=== PATIENT | female | born 1985 ===

== ENCOUNTER 2016-09-14 21:04 | Emergency (ER) | payer OTHER ==
--- NOTE | 2016-09-14 21:58 | ED PSYCHIATRIC COMPLAINT ---
History of Present Illness General Chief Complaint: ETOH/Drug Related Complaint Stated Complaint: BIBA FOR ETOH, NOT COOPERATIVE Source: patient, EMS, police Exam Limitations: poor historian, intoxication Vital Signs & Intake/Output Vital Signs & Intake/Output Vital Signs Date Time Temp Pulse Resp B/P Pulse O2 O2 Flow FiO2 Ox Delivery Rate 09/15 1211 95.8 77 16 130/73 99 Room Air 09/15 0922 97.8 85 18 129/71 99 Room Air 09/15 0545 97.5 108 18 108/52 95 Room Air 09/14 2331 98.5 98 16 113/61 97 Room Air 09/14 2130 98.9 110 20 128/78 97 Room Air ED Intake and Output 09/15 0000 09/14 1200 Intake Total Output Total 300 Balance -300 Output, Urine 300 Allergies Coded Allergies: cefaclor (From CECLOR) (Mild, ITCHING 09/14/16) Triage Note: BIBA ON PEER FOR +ETOH. PER EMS, PT WAS KNOCKING ON OTHER PEOPLE'S DOORS BECAUSE SHE THOUGHT SHE WAS AT HER HOUSE. PT UNCOOPERATIVE, REFUSING TO GO TO HOSPITAL. PT REFUSING ALL CARE EN ROUTE BY EMS. UPON ARRIVAL PT REFUSING VITALS, REFUSING TO SIT ON STRETCHER. 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 yes HPI: Patient presents at the request of the police department for evaluation of acute alcohol intoxication. Patient evidently was found going door to door for an unclear reason. When asked the patient states that the police are too aggressive and they brought her here for no reason. She states she was at home attending to her 3 dogs when the police dragged her out of her house and brought her to the emergency department. (CHIARA BRIAN MD) Past History Travel History Traveled to [place] past 21 day No Medical History Any Pertinent Medical History? see below for history Surgical History Surgical History: non-contributory Family History Hx Contributory? No (CHIARA BRIAN MD) Review of Systems Review of Systems Constitutional: Reports: see HPI. Comments Patient refused to provide review of systems stating that there is no reason for her to be here. (CHIARA BRIAN MD) Physical Exam Physical Exam General Appearance: see below Neurological/Psychiatric: see below Comments: General: Alert, calm, agitated and profane/threatening at times, EtOH-like odor Head: Normocephalic, atraumatic Eyes: Normal inspection, no nystagmus, EOMI Ears: Normal inspection Nose: Normal inspection Throat: Moist mucosa Neck: Supple, no goiter Heart: Regular rate and rhythm, no murmurs rubs or gallops Lungs: Clear to auscultation bilaterally with good air entry Abdomen: Soft nontender nondistended, normal bowel sounds Chest: Nontender Extremities: Normal range of motion grossly, no tremors present, no cyanosis clubbing or edema of the upper extremities Neurologic: cranial nerves II through XII grossly intact, speech slurred, mildly unsteady gait Psychiatric: No apparent delusions or hallucinations, no pressured speech or thought blocking (SNEHAL WALLER,CHIARA Crum) SAD PERSONS Done? patient not suicidal (ROSANGELA WALLER,VANI) Progress Differential Diagnosis: alcohol intoxication Plan of Care: Orders Procedure Date/time Status ED CRISIS PSYCH CONSULT 09/15 712 Active Patient Safety Monitor 09/14 2149 Active URINE DRUGS OF ABUSE 09/14 2148 Complete URINE 09/14 2148 Complete ETHANOL 09/14 2148 Complete COMPREHENSIVE METABOLIC PANEL 09/14 2148 Complete CBC WITHOUT DIFFERENTIAL 09/14 2148 Complete Laboratory Tests 09/14/162158: Anion Gap 18 H, Estimated GFR > 60, BUN/Creatinine Ratio 14.3, Glucose 97, Calcium 9.2, Total Bilirubin 0.3, AST 24, ALT 29, Alkaline Phosphatase 82, Total Protein 7.9, Albumin 4.8, Globulin 3.1, Albumin/Globulin Ratio 1.5, CBC w Diff NO MAN DIFF REQ, RBC 5.37, MCV 80.3 L, MCH 27.5, RDW 12.9, MPV 7.6, Gran % 32.6 L, Lymphocytes % 62.7 H, Monocytes % 4.0, Eosinophils % 0.3, Basophils % 0.4, Absolute Granulocytes 2.4, Absolute Lymphocytes 4.5 H, Absolute Monocytes 0.3, Absolute Eosinophils 0, Absolute Basophils 0, PUBS MCHC 34.2, Serum Alcohol 299.0 09/14/162150: Urine Opiates Screen < 100.00, Methadone Screen < 40, Barbiturate Screen < 60, Ur Phencyclidine Scrn < 6.00, Amphetamines Screen < 100, U Benzodiazepines Scrn < 85, Urine Cocaine Screen < 50, Urine Cannabis Screen < 5.00, Urine Test NEGATIVE 09/14/16 2148: Methadone Screen Cancelled, Barbiturate Screen Cancelled, Ur Phencyclidine Scrn Cancelled, Amphetamines Screen Cancelled, U Benzodiazepines Scrn Cancelled, Urine Cocaine Screen Cancelled, Urine Cannabis Screen Cancelled Comments: Upon presentation to the emergency department the patient was agitated and somewhat aggressive and insulting. She was quite profane as well. With verbal redirection the patient appears to have calm and states that she will be cooperative. I instructed her that she will require evaluation by the grounds and nursery specialist in the morning. Patient stated that she was unable to close there was nobody to tend to her dogs. She states everybody lives across the country. However the patient does have a who apparently is in the area. We will attempt to contact him regarding care of her animals. 09/15/2016 12:33:27 AM patient is currently sleeping. 09/15/2016 7:44:21 AM patient signed out to Dr. Adames at [employer]. (SNEHAL WALLER,CHIARA Crum) Comments: Cleared by psychiatry for discharge (VANI ADAMES MD) Departure Departure Condition: Stable Referrals: UNKNOWN (PCP/Family) Departure Forms: Customer Survey General Discharge Information (CHIARA BRIAN MD) Departure Time of Disposition: 1224 Disposition: HOME OR SELF CARE Clinical Impression Primary Impression: Alcohol intoxication delirium Additional Instructions: Follow up with the recommendations of the blasting worker (VANI ADAMES MD)
[2016-09-14 22:10] LABS: ABSOLUTE BASOPHIL COUNT 0 /CUMM (0.0-0.2); ABSOLUTE EOSINOPHIL COUNT 0 /CUMM (0.0-0.7); ABSOLUTE GRANULOCYTE CT 2.4 /CUMM (1.4-6.5); ABSOLUTE LYMPH COUNT 4.5 /CUMM (1.2-3.4); ABSOLUTE MONOCYTE COUNT 0.3 /CUMM (0.10-0.60); BASOPHIL % 0.4 % (0.0-2.0); EOSINOPHIL % 0.3 % (0-5); GRANULOCYTE % 32.6 % (42.2-75.2); HEMATOCRIT 43.2 % (37-47); MEAN CORPUSCULAR HGB 27.5 PG (27.0-31.0); MEAN CORPUSCULAR HGB CONC 34.2 G/DL (33.0-37.0); MEAN CORPUSCULAR VOLUME 80.3 FL (81.0-99.0); MEAN PLATELET VOLUME 7.6 FL (7.4-10.4); PLATELET COUNT 265 /CUMM (130-400); RBC DISTRIBUTION WIDTH 12.9 % (11.5-14.5); RED BLOOD CELL CT 5.37 /CUMM (4.20-5.40); WHITE BLOOD CELL COUNT 7.2 /CUMM (4.8-10.8)
[2016-09-15 12:11] VITALS: BP 130/73
--- NOTE | 2016-09-15 12:27 | ED PSYCH CRISIS CONSULTATION ---
Crisis Consult Basic Assessment Date of Consult: 09/15/16 Responsible Person/Accompanied By: self, Insurance Authorization: Insurance #1: Insurance name: SELF-PAY Phone number: Policy number: Group number: Authorization number: ED Provider: Patient's ED Provider: CHIARA BRIAN MD Primary Care Physician: Patient's PCP: UNKNOWN PCP's Phone Number: Chief Complaint: ETOH/Drug Related Complaint Patient's Quote: "I was drunk and don't remember." Present Illness: The pt is a 31yo female brought in by ambulance on a PEER due to intoxication. The pts initial BAL in the ED was 299. The pt was initially uncooperative and argumentative with the ED staff but did not require restraints. Initial ED documentation notes that prior to the ambulance the pt was knocking on doors believing she was home. During this assessment the pt presented as oriented, calm, cooperative and pleasant with goal directed speech. The pt reports that due to being intoxicated she does not remember being brought to the ED. The pt and her are both unaware of who called 911 regarding the pt. The pt denies SI, HI, AH and VH. The pt denies any problems with sleep and appetite. 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 The pt reports a history of SI but denies any attempts to harm herself. The stated he is not aware of the pt ever trying tho harm herself. The pt stated that approximately 1 month ago, while intoxicated, she thought she would this greatly increases when she drinks. The pt reports she has 1 drink with dinner 2 x per week and approximately 2x per month becomes intoxicated. The pt reports that yesterday she drank almost 2 bottles of wine then took an Uber to a bar near their rented home. The pt denies any drug use and her toxicology screen is negative. The pt does not remember leaving the bar or knocking on any doors. The pt reports a long history of depression and that she is taking Paxil prescribed by her PCP in [place]. The pt and her moved to [place] approcximately 1 year ago for her to attend graduate school. The pt reports that 2 years ago she saw an individual therapist in [place] for 8 months. The pt stated she intends to not drink anymore and is agreeable to outpatient treatment. Pts presentation discussed with Dr. Wolfgang, plan is discharge from the ED with recommendation for outpatient treatment. The pt is in agreement with this plan and was provided a list of outpatient resources. The pts does not believe the pt is a risk to herself or others and is in agreement with this plan. Patient's Address: [address] [place] [address] Other Phone Number: Who Do You Live With? Spouse Family/Informants Interviewed: pt's Allergies - Coded Allergies: cefaclor (From CECLOR) (Mild, ITCHING 09/14/16) Current Medications - No Known Home Medications Laboratory Results: Laboratory Tests 09/14/162158: Anion Gap 18 H, Estimated GFR > 60, BUN/Creatinine Ratio 14.3, Glucose 97, Calcium 9.2, Total Bilirubin 0.3, AST 24, ALT 29, Alkaline Phosphatase 82, Total Protein 7.9, Albumin 4.8, Globulin 3.1, Albumin/Globulin Ratio 1.5, CBC w Diff NO MAN DIFF REQ, RBC 5.37, MCV 80.3 L, MCH 27.5, RDW 12.9, MPV 7.6, Gran % 32.6 L, Lymphocytes % 62.7 H, Monocytes % 4.0, Eosinophils % 0.3, Basophils % 0.4, Absolute Granulocytes 2.4, Absolute Lymphocytes 4.5 H, Absolute Monocytes 0.3, Absolute Eosinophils 0, Absolute Basophils 0, PUBS MCHC 34.2, Serum Alcohol 299.0 09/14/162150: Urine Opiates Screen < 100.00, Methadone Screen < 40, Barbiturate Screen < 60, Ur Phencyclidine Scrn < 6.00, Amphetamines Screen < 100, U Benzodiazepines Scrn < 85, Urine Cocaine Screen < 50, Urine Cannabis Screen < 5.00, Urine Test NEGATIVE 09/14/162147: Methadone Screen Cancelled, Barbiturate Screen Cancelled, Ur Phencyclidine Scrn Cancelled, Amphetamines Screen Cancelled, U Benzodiazepines Scrn Cancelled, Urine Cocaine Screen Cancelled, Urine Cannabis Screen Cancelled Past History Past Medical History Neurological: UNOBTAINABLE EENT: UNOBTAINABLE Cardiovascular: UNOBTAINABLE Respiratory: UNOBTAINABLE Gastrointestinal: UNOBTAINABLE Hepatic: UNOBTAINABLE Renal: UNOBTAINABLE Musculoskeletal: UNOBTAINABLE Psychiatric: UNOBTAINABLE Endocrine: UNOBTAINABLE Blood Disorders: UNOBTAINABLE Cancer(s): UNOBTAINABLE DIRECTOR OF REHABILITATION AND WELLNESS/Reproductive: UNOBTAINABLE Past Surgical History Surgical History: non-contributory Psychosocial History 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, supportive spouse, states she understands need for treatment Physical Limitations (Interventions): n/a Psychiatric Treatment History Psych Treatment Psychiatric Treatment Yes Inpatient Treatment No Outpatient Treatment Yes Location of Treatment [facility] individual therapy Reason for Treatment depression Dates of Treatment 2 years ago for 8 months Response to Treatment inconsistent Diagnosis by History: depression Substance Use/Abuse History Drug Use/Abuse Substances Used/Abused Yes Substance Used/Abused Alcohol First Use pt reports as a teenager Last Used 09/14/16 How much used/taken 1 drink to large amounts How often 1 drink 2x per week, large amounts 2x per month For how long past 3 years Route of use oral Substance Abuse Treatment Substance Abuse Treatment Past Substance Abuse [place] No Current Mental Status Mental Status Orientation: Person, Place, Situation Affect: Appropriate, WNL Speech: WNL Neuro-vegetative: WNL Appearance Appearance- Dress/Hygiene: appropriate Behaviors Thought Process: WNL Thought Content: WNL Memory: WNL Insight: Fair SI/HI Risk Assessment Past Suicidal Ideation/Attempts Yes (ideation only) Current Suicidal Ideation/Att No Past Homicidal Ideation/Att: No Current Homicidal Ideation/Attempts No Degree of Intent: None Danger To: Others (n/a) Risk Factors: substance abuse, poor impulse control, limited support Lethality Ratin (mild) PTSD Checklist PTSD Done? patient declined ED Management Sitter: Yes Restraints: No DSM5/PS Stressors/Medical Prob Diagnosis' (DSM 5, Stressors, Medical): F10.20 Alcohol Use Disorder, Moderate F32.9 Unspecified Depressive Disorder Current GAF: 45 Departure Disposition Psych Medical Clearance Date: 09/15/16 Medically Cleared at: 1000 Time Started: 1100 Time Ended: 1130 Psychiatrist Consulted: Dr. Goss Date Disposition Established: 09/15/16 Time Disposition Established: 1215 Plan for Disposition - Modality: Outpatient Facility: Patient to Arrange Rationale for Disposition: Pt is not in need of hospitalization. Referrals UNKNOWN (PCP/Family)
== END 2016-09-15 12:30 ==
LOC: ERH 21:04
PROVIDERS: Emergency Medicine
DX: F10.121 Alcohol abuse with intoxication delirium (principal)
CPT/HCPCS: 80307; 81025; G0463; G0480